=== PATIENT | female | born 1945 | race Caucasian/White ===

== ENCOUNTER 2018-11-29 21:01 | Inpatient (IN) | payer MEDICARE, BC ==
[~2018-11-29] VITALS: Ht 157.5 cm; Wt 78.5 kg
--- NOTE | 2018-11-29 21:40 | NUR ---
GPS/MANUAL CONTROL AUGER PRESS OPERATOR NOTE: ADMITTED A 73 YEAR OLD FEMALE FROM [facility] PT IS ON 515O HOLD FOR DTS PER HOLD PATIENT STATES "I DON'T WANT TO BE HERE I FEEL LIKE THIS ALL THE TIME IT DOES NOT GO AWAY I CAN'T SLEEP I REALLY DON'T WANT TO BE HERE I DON'T WANT THIS TO GO THAT WAY AGAIN". PT HAS HISTORY OF PREVIOUS SUICIDE ATTEMPT WITH PILLS. UPON FACE TO FACE ASSESSMENT PATIENT IS A/O X3, DISHEVELED, UNKEMPT, DISORGANIZED, COOPERATIVE, REFUSED TO SIGN CONSENT. BELONGINGS INVENTORIED AND CHECKED FOR CONTRABAND. CONTRABAND FOUND AND PUT IT IN SAFE CABINET. PATIENT IS UNDER THE PSYCHIATRIC CARE OF DR. BRYANT AND PSYCHIATRIC CARE OF FLOWER CHAVEZ. BOTH DOCTORS AWARE AND NOTIFIED OF THE ADMISSION. V/S WNL. NO SOB. NO ACUTE DISTRESS NOTED. SKIN/BODY CHECK DONE. SKIN CLEAR AND INTACT. BED LOCKED AND PLACED ON LOWEST POSITION. SIDERAILS X2. ALL NEEDS ATTENDED AND ANTICIPATED. WILL CONTINUE TO MONITOR Q 15 MINS FOR SAFETY AND BEHAVIOR.
[2018-11-29] MEDS ORDERED: MAG HYDROX/AL HYDROX/SIMETH 30 ML UDC PO PRN (22:00)
[2018-11-29] MEDS ORDERED: MAGNESIUM HYDROXIDE 30 ML UDC PO PRN (22:00)
[2018-11-29] MEDS ORDERED: ACETAMINOPHEN 325 MG TABLET PO PRN (22:00)
[2018-11-29] MEDS ORDERED: LORAZEPAM 0.5 MG TABLET PO PRN (22:00)
[2018-11-29] MEDS: ZOLPIDEM TARTRATE 5 MG TABLET PO PRN (23:36)
[2018-11-30 02:42] VITALS: BP 127/86
[2018-11-30] MEDS ORDERED: CHOL200026 PO (06:34)
[2018-11-30] MEDS ORDERED: CLON0.1T PO (06:34)
[2018-11-30] MEDS ORDERED: HYDR12.5 PO (06:35)
[2018-11-30] MEDS ORDERED: VALS40TA4 PO (06:35)
[2018-11-30] MEDS ORDERED: RANI-655 PO (06:35)
[2018-11-30] MEDS ORDERED: ROSU10TA2 PO (06:35)
[2018-11-30] MEDS ORDERED: UBID200C32 PO (06:35)
[2018-11-30] MEDS ORDERED: ONDA8TAB6 PO (06:35)
[2018-11-30] MEDS ORDERED: LURA40TA PO (06:35)
[2018-11-30] MEDS ORDERED: VORT10TA PO (06:35)
[2018-11-30 06:45] LABS: BASOPHILS % (AUTO) 0.4 % (0.0-2.0); EOSINOPHILS % (AUTO) 0.4 % (0.0-6.0); HEMATOCRIT 38 % (33-45); HEMOGLOBIN 12.8 g/dL (11.5-14.8); LYMPHOCYTES # (AUTO) 1.3 /CMM (0.8-4.8); LYMPHOCYTES % (AUTO) 26.8 % (20.0-44.0); MEAN CORPUSCULAR HGB CONC 34 g/dl (31.0-36.0); MEAN CORPUSCULAR VOLUME 94 fL (82-100); MONOCYTES # (AUTO) 0.3 /CMM (0.1-1.30); MONOCYTES % (AUTO) 5.9 % (2.0-12.0); NEUTROPHILS # (AUTO) 3.3 /CMM (1.8-8.9); NEUTROPHILS % (AUTO) 66.5 % (43.0-81.0); PLATELET COUNT (AUTO) 215 /CMM (150-450); RED BLOOD CELL COUNT(AUTO) 4.03 MIL/uL (4.0-5.2)
[2018-11-30 06:54] LABS: CHOLESTEROL 285 mg/dL (<200); HDL CHOLESTEROL 58 mg/dL (40-60); LDL 196 mg/dL (0-99); TRIGLYCERIDES 179 mg/dL (30-150)
[2018-11-30 06:55] LABS: ALANINE AMINOTRANSFERASE 20 U/L (12-78); ALBUMIN 3.1 g/dL (3.4-5.0); ALKALINE PHOSPHATASE 67 U/L (46-116); ASPARTATE AMINOTRANSFERASE 10 U/L (15-37); BILIRUBIN,TOTAL 0.4 mg/dL (0.2-1.0); CARBON DIOXIDE 25 mmol/L (21-32); CHLORIDE 107 mmol/L (98-107); GLUCOSE 120 mg/dL (74-106); POTASSIUM 4.2 mmol/L (3.5-5.1); SODIUM SERUM 141 mmol/L (136-145); TOTAL PROTEIN, SERUM 6.2 g/dL (6.4-8.2); UREA NITROGEN, BLOOD 16 mg/dL (7-18)
[2018-11-30 08:00] VITALS: BP 128/84
[2018-11-30] MEDS ORDERED: TEMA15CA PO (08:55)
[2018-11-30] MEDS ORDERED: LORA1TAB PO (08:55)
[2018-11-30] MEDS: HYDROCHLOROTHIAZIDE 25 MG TABLET PO SCH (10:27)
[2018-11-30] MEDS ORDERED: ONDANSETRON 4 MG TAB.RAPDIS PO PRN (10:30)
[2018-11-30 16:00] VITALS: BP 133/89
[2018-11-30] MEDS: CHOLECALCIFEROL 1,000 UNIT TABLET (VIT D3) PO SCH (17:22)
[2018-11-30] MEDS: VALSARTAN 40 MG TABLET PO SCH (17:22)
--- NOTE | 2018-11-30 19:30 | NUR ---
GPS RN NOTE, RECEIVED PATIENT AWAKE AND IN BED, NO S/S OR COMPLAINTS OF PAIN AT THIS TIME. PATIENT IS DISPLAYING NO S/S OF APPARENT DISTRESS AT THIS TIME. PATIENT BREATHING IS UNLABORED WITH EQUAL RISE AND FALL OF THE CHEST. PATIENT IS ALERT AND ORIENTED X 1 ON ROOM AIR WITH A SPO2 OF 97 %. PATIENT IS MED SELECTIVE, DISORGANIZED, GUARDED, PARANOID, COOPERATIVE, ISOLATIVE, WITHDRAWN, AND NEEDS REORIENTATION. PATIENT DENIES SUICIDE AND HOMICIDAL IDEATIONS AT THIS TIME. PATIENT ASSISTED WITH TURNING AND REPOSITIONING Q2HR AND PRN FOR COMFORT AND CIRCULATION. PATIENT HAS NO NEEDS AT THIS TIME. PATIENT EDUCATED ON THE USE OF THE CALL OSHEA. PATIENT BED SIDE RAILS ARE UP X 2 FOR SAFETY, BED IS LOCKED, AND LOW WILL CONTINUE TO MONITOR AND MAINTAIN SAFETY.
[2018-11-30 20:00] VITALS: BP 123/72
[2018-11-30] MEDS ORDERED: Medication Not On Formulary EA (Rosuvastatin Calcium (Crestor) 10 MG) PO SCH (22:00)
[2018-11-30] MEDS: ATORVASTATIN 10 MG TABLET PO SCH (22:00)
[2018-11-30] MEDS: CLONIDINE HCL 0.1 MG TABLET PO SCH (22:00)
[2018-11-30] MEDS: QUETIAPINE FUMARATE 25 MG TABLET PO SCH (22:13)
--- NOTE | 2018-11-30 22:20 | NUR ---
GPS RN NOTE, PATIENT REFUSED CLONIDINE HCL 0.1MG PO HS AND LIPITOR 20 MG PO HS. 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 EDUCATED PATIENT ON THE RISKS AND BENEFITS OF TAKING AND REFUSING AFOREMENTIONED MEDICATIONS. WILL CONTINUE TO MONITOR THIS PATIENT.
[2018-12-01] MEDS: ZOLPIDEM TARTRATE 5 MG TABLET PO PRN (02:00)
--- NOTE | 2018-12-01 02:00 | NUR ---
GPS RN NOTE, PATIENT HAS A COMPLAINT OF NOT BEING ABLE TO SLEEP AND IS REQUESTING AMBIEN AT THIS TIME. PATIENT VITAL SIGNS ARE STABLE. GAVE AMBIEN 5 MG PO HS PRN ORDERED. WILL REASSESS FOR FOR INSOMNIA AND I WILL CONTINUE TO MONITOR THIS PATIENT.
[2018-12-01 08:00] VITALS: BP 113/80
[2018-12-01] MEDS: CITALOPRAM HYDROBROMIDE 20 MG TABLET PO SCH (08:58)
[2018-12-01] MEDS: CHOLECALCIFEROL 1,000 UNIT TABLET (VIT D3) PO SCH (08:58)
[2018-12-01] MEDS: HYDROCHLOROTHIAZIDE 25 MG TABLET PO SCH (08:59)
[2018-12-01 16:00] VITALS: BP 146/90
[2018-12-01] MEDS: VALSARTAN 40 MG TABLET PO SCH (16:49)
--- NOTE | 2018-12-01 19:30 | NUR ---
GPS RN NOTE, RECEIVED PATIENT AWAKE AND IN BED, NO S/S OR COMPLAINTS OF PAIN AT THIS TIME. PATIENT IS DISPLAYING NO S/S OF APPARENT DISTRESS AT THIS TIME. PATIENT BREATHING IS UNLABORED WITH EQUAL RISE AND FALL OF THE CHEST. PATIENT IS ALERT AND ORIENTED X 1 ON ROOM AIR WITH A SPO2 OF 97 %. PATIENT IS MED SELECTIVE, DISORGANIZED, GUARDED, PARANOID, COOPERATIVE, ISOLATIVE, BRIGHT, PLEASANT, AND NEEDS REORIENTATION. PATIENT DENIES SUICIDE AND HOMICIDAL IDEATIONS AT THIS TIME. PATIENT ASSISTED WITH TURNING AND REPOSITIONING Q2HR AND PRN FOR COMFORT AND CIRCULATION. PATIENT HAS NO NEEDS AT THIS TIME. PATIENT EDUCATED ON THE USE OF THE CALL OSHEA. PATIENT BED SIDE RAILS ARE UP X 2 FOR SAFETY, BED IS LOCKED, AND LOW WILL CONTINUE TO MONITOR AND MAINTAIN SAFETY.
[2018-12-01 19:38] VITALS: BP 119/69
[2018-12-01] MEDS: QUETIAPINE FUMARATE 25 MG TABLET PO SCH (21:16)
[2018-12-01] MEDS: ATORVASTATIN 10 MG TABLET PO SCH (21:44)
[2018-12-01] MEDS: CLONIDINE HCL 0.1 MG TABLET PO SCH (21:44)
--- NOTE | 2018-12-01 21:44 | NUR ---
GPS RN NOTE, PATIENT REFUSED CLONIDINE HCL 0.1MG PO HS AND LIPITOR 20 MG PO HS. OFFERED BOTH THREE MEDICATIONS THREE TIMES AND STILL PATIENT REFUSED STATING, " MY BLOOD PRESSURE AND CHOLESTEROL IS FINE I DON'T NEED THOSE MEDS ". EDUCATED PATIENT ON THE RISKS AND BENEFITS OF TAKING AND REFUSING AFOREMENTIONED MEDICATIONS. WILL CONTINUE TO MONITOR THIS PATIENT.
[2018-12-02] MEDS: ZOLPIDEM TARTRATE 5 MG TABLET PO PRN (01:53)
[2018-12-02 08:00] VITALS: BP 128/64
[2018-12-02] MEDS: CHOLECALCIFEROL 1,000 UNIT TABLET (VIT D3) PO SCH (08:23)
[2018-12-02] MEDS: CITALOPRAM HYDROBROMIDE 20 MG TABLET PO SCH (08:23)
[2018-12-02 08:24] VITALS: BP 128/64
[2018-12-02] MEDS: HYDROCHLOROTHIAZIDE 25 MG TABLET PO SCH (08:24)
--- NOTE | 2018-12-02 10:30 | NUR ---
VICKEY called the pts , Bobby Mojica ([phone]), and informed him that the pt is being discharged AMA. He stated that he was already on his way to the hospital so he will pick her up.
--- NOTE | 2018-12-02 11:25 | NUR ---
NUCLEAR WEAPONS MECHANICAL SPECIALIST NOTES PATIENT SEEN AND EVALUATED BY MACARIO GALVAN. PATIENT DISCHARGED HOME AGAINST MEDICAL ADVICE DESPITE OF EXPLANATION OF RISKS AND BENEFITS, VERBALIZED UNDERSTANDING. PATIENT ALERT ORIENTED X 3. NO ACUTE DISTRESS NOTED. DISCHARGE INSTRUCTIONS GIVEN TO THE PATIENT INCLUDING FOLLOW UP WITH PRIMARY DOCTOR AND MEDICATION RECONCILIATION GIVEN, VERBALIZED UNDERSTANDING. PATIENT STATED "I HAVE APPOINTMENT THIS AFTERNOON TO SEE MY DOCTOR".ALL BELONGINGS ACCOUNTED FOR. PATIENT DENIES AUDITORY AND VISUAL HALLUCINATION. PATIENT DENIES SUICIDAL AND HOMICIDAL IDEATION. PATIENT DISCHARGE IN STABLE CONDITION. ASSISTED TO THE LOBBY PICKED UP BY JASMHID MARTINEZ VIA PRIVATE CAR.
--- NOTE | 2018-12-02 11:36 | NUR ---
Initial Discharge Plan: Pt currently resides at home with her , Bobby Mojica ([phone]), located at [address] [place] [address], [place] [address]. Per pt, she would like to leave against medical advice. SW will work with the pt and the MD regarding appropriate discharge planning. SW will form a safe and proper discharge.
--- NOTE | 2018-12-02 11:59 | NUR ---
Discharge Note: Pt was discharged AMA to her home located at [address] [facility], [place] [address]; ([phone]). Pt was picked up by her , Bobby ([phone]), around 11:30AM. Pt denied both suicidal and homicidal ideation as well as auditory and visual hallucinations. Pt appeared to be in a euthymic mood and presented with an anxious affect. Pt will be under the care of her psychiatrist, Dr. Breezy Mcgovern, located at [address] [address]; ; and a fax was sent to: [phone]. Pt will also be under the care of her manufacturing plant manager, Dr. Mal Pérez, located at [address] [place] [address]; .
== END 2018-12-02 11:15 | disposition left against medical advice (07) | DRG 885 ==
LOC: GPS 21:12
PROVIDERS: ADMIT Psychiatry & Neurology Psychiatry; ATTEND Nurse Practitioner Acute Care
DX: F33.2 Major depressive disorder, recurrent severe without psychotic features (principal); E11.65 Type 2 diabetes mellitus with hyperglycemia; E44.1 Mild protein-calorie malnutrition; R45.851 Suicidal ideations; E78.5 Hyperlipidemia, unspecified; I25.10 Atherosclerotic heart disease of native coronary artery without angina pectoris; I48.91 Unspecified atrial fibrillation; K21.9 Gastro-esophageal reflux disease without esophagitis; I10 Essential (primary) hypertension; G43.909 Migraine, unspecified, not intractable, without status migrainosus; M19.90 Unspecified osteoarthritis, unspecified site; M48.00 Spinal stenosis, site unspecified; Z68.31 Body mass index [BMI] 31.0-31.9, adult
CPT/HCPCS: 36415; 80053-TC; 80061-TC; 82962-TC; 85025-TC; 87081-TC; 97112-TC; 97116-TC; 97530-TC; Q0162